=== PATIENT | male | born 1975 | race Caucasian/White ===

== ENCOUNTER 2016-07-29 18:13 | Emergency (ER) | payer SELFPAY ==
[~2016-07-29] VITALS: Wt 74.8 kg
[~2016-07-29 18:13] MED LIST: AMOXICILLIN500 M2 PO; ANAPROX DS550 MG PO; CYCLOBENZAPRINE10 MG PO; NAPROSYN500 MG PO; NAPROXEN SOD550 MG PO
[2016-07-29] MEDS ORDERED: TOBREX OPHTH S2.5 ML OPH (18:34)
== END 2016-07-29 18:36 | disposition home or self-care (01) ==
LOC: ED 18:13
DX: H10.9 Unspecified conjunctivitis (principal); R03.0 Elevated blood-pressure reading, without diagnosis of hypertension; F17.200 Nicotine dependence, unspecified, uncomplicated

== ENCOUNTER 2017-06-09 22:26 | Emergency (ER) | payer SELFPAY ==
[~2017-06-09] VITALS: Ht 172.7 cm; Wt 63.5 kg
[~2017-06-09 22:26] MED LIST changes: +TOBREX OPHTH S2.5 ML OPH
== END 2017-06-09 22:58 | disposition left against medical advice (07) ==
LOC: ED 22:26
DX: T50.991A Poisoning by other drugs, medicaments and biological substances, accidental (unintentional), initial encounter (principal); F17.200 Nicotine dependence, unspecified, uncomplicated; Y92.099 Unspecified place in other non-institutional residence as the place of occurrence of the external cause

== ENCOUNTER 2018-07-04 09:56 | Inpatient (IN) | payer MEDICAID ==
[~2018-07-04] VITALS: Ht 167.6 cm; Wt 60.0 kg
--- NOTE | ~2018-07-04 | EKG ---
[place], [place] ELECTROCARDIOGRAM REPORT NAME: GIBSON SHELTON UNIT #: [id number] ROOM: 511 DOCTOR: ZAIN DRAFT REPORT BIRTHDATE: [birth year] [facility] Test Date: 2018-07-04 Test Time: 10:42:00 Pat Name: GIBSON SHELTON Department: Room: 511 Gender: M Teletype Clerk: Bryanna Mckinney : 1975 Requested By: SIS ZULETA Order Number: [id number] Reading MD: Bernardo Mancera Measurements Intervals [place] Rate: 59 P: 2 IL: 107 QRS: 54 QRSD: 86 T: 45 QT: 451 QTc: 447 Interpretive Statements Sinus rhythm Short [place] interval Consider left ventricular hypertrophy Compared to ECG 12/22/2017 12:01:39 Electronically Signed On 07-06-2018 11:00:30 PDT by Bernardo Mancera CM:EKGRPT:ELECTROCARDIOGRAM REPORT [id number] SIS ALBERTO DRAFT REPORT SIS ZULETA DO
[2018-07-04 10:03] VITALS: BP 163/87
--- NOTE | 2018-07-04 10:14 | NUR ---
PT WITH A HX ALCOHOLISM, PT DENIES DAILY DRINKING, STATES HE HAS A "BEER HERE AND THER", REPORTS ONE BEER YESTERDAY.
[2018-07-04 10:17] LABS: BASO % 0.5 % (0.0-1.0); EOS % 0.3 % (1.0-4.0); HEMATOCRIT 40.4 % (42.0-52.0); HEMOGLOBIN 14.1 g/dl (14.0-18.0); LYMPH # 1.5 10*3/uL (1.3-4.4); LYMPH % 23.5 % (27.0-41.0); MEAN CORPUSCULAR HGB 33.5 pg (27.0-31.0); MEAN CORPUSCULAR HGB CONC 34.9 g/dl (33.0-37.0); MEAN PLATELET VOLUME 10.3 fl (9.6-12.3); MONO # 0.7 10*3/uL (0.1-1.0); MONO % 10.8 % (3.0-9.0); NEUT # 4.2 10*3/uL (2.3-7.9); NEUT % 64.4 % (47.0-73.0); PLATELET COUNT AUTOMATED 108 10*3/uL (130-400); RED BLOOD COUNT 4.21 10*6/uL (4.50-5.90); RED CELL DISTRI WIDTH 12.6 % (0-14.5); WHITE BLOOD COUNT 6.6 10*3/uL (4.8-10.8)
--- NOTE | 2018-07-04 10:27 | NUR ---
DR ZULETA AWARE OF LACTIC ACID OF 4.3
[2018-07-04 10:29] LABS: INTERNATIONAL NORM RATIO 0.9 (2.0-3.5)
--- NOTE | 2018-07-04 10:30 | NUR ---
PT ADIVAN WAS NOT GIVEN PER DR ZULETA, I WAS UNABLE TO EDIT THIS TO THE MAR.
[2018-07-04 10:48] LABS: ALBUMIN 3.5 gm/dl (3.1-4.5); ALKALINE PHOSPHATASE 88 U/L (45-117); BUN 7 mg/dl (7-24); CHLORIDE 97 mmol/L (98-107); CREATININE 0.68 mg/dL (0.70-1.30); LIPASE 61 U/L (73-393); POTASSIUM 3.4 mmol/L (3.5-5.1); SGOT/AST 48 IU/L (3-35); SGPT/ALT 39 U/L (12-78); SODIUM 133 mmol/L (136-145); TOTAL PROTEIN 8.4 gm/dL (6.4-8.2)
--- NOTE | 2018-07-04 10:50 | NUR ---
PT DIAPHORTIC AND ACTIVLY VOMITING. DR ZULETA AT THE BEDSIDE.
[2018-07-04 10:57] LABS: ETHYL ALCOHOL < 3.0 mg/dl (<3); TROPONIN I < 0.015 ng/ml (<0.045)
--- NOTE | 2018-07-04 11:11 | NUR ---
PT WITH 1 LITER OF NS INFUSED, PT LOOKS AND FEELS A LITTLE BETTER, PT IS NOT VOMITING NO SHAKES AT THE PRESENTS , PHENERGAN AND BENADRYL GIVEN. WILL MONITOR.
[2018-07-04 11:12] VITALS: BP 141/108
--- NOTE | 2018-07-04 11:51 | NUR ---
PT RESTING QUIETLY, STATES MEDICATED WAS EFFECTIVE FOR HIS VOMITING.
[2018-07-04 13:30] VITALS: BP 151/74
[2018-07-04 13:35] VITALS: BP 146/82
--- NOTE | 2018-07-04 13:35 | NUR ---
A 43, admitted to 5E, under the services of VIOLETA Dickey DO with a diagnosis of DIZZINESS, NAUSEA, VOMITING. Chief complaint is DIZZY ON AND OFF FOR 2 DAYS. Patient arrived via ambulance from ER. Monitor applied. Initial assessment completed. Vital signs taken and recorded. VIOLETA DICKEY DO notified of admission to the unit. Orders received. See assessment for past medical history, medications and allergies. Patient and/or family oriented to unit. [facility] visitation policy reviewed. Clothing/patient valuable form completed. EUN JOHNS
--- NOTE | 2018-07-04 13:46 | NUR ---
PT SHAKING AND FLUSH UPON FLOOR ARRIVAL. INCONTINENT OF BOWELS. CALLED. DR.A ZULETA TO NOTIFY PT IS ON THE FLOOR. SAID HE WOULD COME TO SEE HIM.
--- NOTE | 2018-07-04 13:48 | NUR ---
PT UP WALKING TO RESTROOM IN ROOM. STEADY GAIT.
--- NOTE | 2018-07-04 14:00 | NUR ---
IN TO SEE PT AT THIS TIME.
--- NOTE | 2018-07-04 14:12 | NUR ---
NOTIFIED OF + ORTHOs.
[2018-07-04 16:00] VITALS: BP 147/88
[2018-07-04 16:59] LABS: BILIRUBIN NEGATIVE (NEGATIVE); BLOOD NEGATIVE (NEGATIVE); CLARITY CLEAR (CLEAR); COLOR YELLOW (YELLOW); GLUCOSE NEGATIVE (NEGATIVE); KETONE NEGATIVE (NEGATIVE); LEUKO ESTERASE NEGATIVE (NEGATIVE); NITRITE NEGATIVE (NEGATIVE); PH 7.5 (5.0-9.0); UROBILINOGEN 0.2 E.U./dl (0.2-1.0)
[2018-07-04 17:03] LABS: URINE AMPHETAMINES < 1000 (1000ng/ml); URINE BARBITURATES < 200 (200ng/ml); URINE BENZODIAZEPINES < 200 (200ng/ml); URINE CANNABINOIDS (THC) < 50 (50ng/ml); URINE COCAINE < 300 (300ng/ml); URINE METHADONE < 300 (300ng/ml); URINE OPIATES < 300 (300ng/ml)
[2018-07-04 17:19] LABS: URINE PHENCYCLIDINE < 25 (25ng/ml)
[2018-07-04 20:00] VITALS: BP 142/74
[2018-07-05] VITALS: BP 148/93
[2018-07-05 08:00] VITALS: BP 130/70
--- NOTE | 2018-07-05 10:15 | NUR ---
DR. Silverman in and examined pt. Plan to dc pt today.
--- NOTE | 2018-07-05 10:40 | NUR ---
Discharge instructions reviewed with patient. Patient receptive and verbalizes understanding. Follow-up care arranged. Written instructions given to patient.States his dad is coming to pick him up about noon. STEW TALAVERA
--- NOTE | 2018-07-05 10:42 | NUR ---
Pt left via ambulatory. States he will wait outside.
== END 2018-07-05 10:42 | disposition home or self-care (01) | DRG 391 ==
LOC: ED 09:56 → EDHOLD 11:50 → 5E 12:11
PROVIDERS: Emergency Medicine; Internal Medicine; ADMIT Internal Medicine
DX: K52.9 Noninfective gastroenteritis and colitis, unspecified (principal); G93.41 Metabolic encephalopathy; E87.2 Acidosis; E87.1 Hypo-osmolality and hyponatremia; E86.1 Hypovolemia; I95.1 Orthostatic hypotension; E86.0 Dehydration; E87.8 Other disorders of electrolyte and fluid balance, not elsewhere classified; E87.6 Hypokalemia; R03.0 Elevated blood-pressure reading, without diagnosis of hypertension; D75.89 Other specified diseases of blood and blood-forming organs; D69.6 Thrombocytopenia, unspecified; I48.0 Paroxysmal atrial fibrillation; F10.10 Alcohol abuse, uncomplicated; R74.0 Nonspecific elevation of levels of transaminase and lactic acid dehydrogenase [LDH]; R73.9 Hyperglycemia, unspecified; F17.210 Nicotine dependence, cigarettes, uncomplicated; Z71.6 Tobacco abuse counseling; Z87.81 Personal history of (healed) traumatic fracture; Z91.81 History of falling